=== PATIENT | male | born 1950 | race Caucasian/White ===

== ENCOUNTER 2024-07-06 16:19 | Emergency (ER) | payer OTHER ==
[2024-07-06 17:45] LABS: Absolute Eosinophils 0.1 K/uL (0-0.5); Absolute Lymphocytes (CBC) 0.5 K/uL (0.7-4.9); Absolute Monocytes 0.5 K/uL (0.1-1.3); Absolute Neutrophil 8.7 K/uL (1.8-8.0); Basophils % 0.1 % (0-1.3); Eosinophils % 1.1 % (0-4.4); Hematocrit 46.7 % (39.6-49.0); Hemoglobin 16.7 g/dL (13.6-17.9); MCH 36.6 pg (27.0-35.0); MCHC 35.8 g/dL (32.0-36.0); MCV 102.3 fL (80-100); MPV 10.3 fL (7.6-11.3); Monocytes % 5.3 % (3.3-12.3); Neutrophils % 88.5 % (41.7-73.7); Nucleated Red Blood Cells % 0.1 % (0-0); Platelets 124 thou/uL (152-406); RBC Red Blood Cell Count 4.57 M/uL (4.33-5.43); Red Cell Distribution Width 13.2 % (12.1-15.2)
[2024-07-06 17:51] LABS: PT Prothrombin Time 10.5 SECONDS (9.4-12.5); PTT, Activated Partial Thromb 31.7 SECONDS (24.3-36.9)
[2024-07-06 17:57] LABS: Albumin 3.9 g/dL (3.4-5.0); Albumin/Globulin Ratio 1.1 (1.1-1.8); Anion Gap 8.5 mEq/L (5.0-15.0); Bilirubin Total 0.7 mg/dL (0.2-1.0); Globulin 3.5 g/dL (2.3-3.5); Potassium 3.5 mEq/L (3.5-5.1); Protein, Total 7.4 g/dL (6.4-8.2)
--- NOTE | 2024-07-06 18:53 | RAD REPORT ---
EXAMINATION: CT ABDOMEN AND PELVIS WITH CONTRAST CLINICAL INDICATION: Male, 74 years old.eval for UTI/prostatitis TECHNIQUE: CT abdomen and pelvis was performed, after the administration of IV contrast, as per [facility] protocol. Axial, sagittal and coronal reconstructions were obtained. One or more of the following dose reduction techniques were used: Automated exposure control, adjustment of the mA and/o r kV according to patient size, and/or iterative reconstruction. Unless otherwise specified, incidental findings do not require dedicated imaging follow-up. [id number]. COMPARISON: No prior exam. FINDINGS: LOWER CHEST: Dependent atelectasis. No significant pericardial effusion. Coronary artery calcificatio ns present. UPPER GI: No significant abnormality. LIVER: Benign appearing low density liver lesions. No suspicious mass. GALLBLADDER/BILE DUCTS: No biliary ductal dilatation.? PANCREAS: No mass, ductal dilation, or soo-pancreatic fluid. SPLEEN: Unremarkable. ADRENALS: Adrenal thickening without discrete mass. KIDNEYS AND URETERS: No hydronephrosis.Low density and/or too small to characterize renal lesions whi ch are statistically benign. ABDOMINAL AORTA AND OTHER VESSELS: Normal caliber aorta and IVC. PERITONEUM: No abnormal free fluid. No free air. LYMPH NODES: No pathologic lymphadenopathy. ABDOMINAL WALL: Small fat containing umbilical hernia. Fat-containing inguinal hernias. SMALL BOWEL/COLON: Small bowel has normal course and caliber. No colonic wall thickening or pericolon ic inflammatory changes.Normal appendix. Mild diverticulosis without diverticulitis. URINARY BLADDER: Underdistended but grossly unremarkable. REPRODUCTIVE ORGANS: Mild median lobe hypertrophy of the prostate. No other significant prostatic abn ormality identified. MUSCULOSKELETAL: Multilevel degenerative changes in the spine and hips. No acute fracture. ADDITIONAL FINDINGS: None. IMPRESSION: No acute or significant abnormalities seen in the abdomen or pelvis. Normal appendix.
[2024-07-06 19:53] LABS: Blood Morphology Comment NOT SEEN (NOT SEEN); Platelet Estimate DECR; White Blood Cell Scan OK (OK)
[2024-07-06 20:53] LABS: Specific Gravity > 1.030 (1.005-1.030); Urine Bilirubin NEGATIVE (Negative); Urine Blood Negative (Negative); Urine Clarity Clear (Clear); Urine Color Yellow (Yellow); Urine Glucose NEGATIVE (Negative); Urine Ketones NEGATIVE (Negative); Urine Microscopic Reflex YN NO UMIC; Urine Nitrite NEGATIVE (Negative); Urine Protein NEGATIVE (Negative); Urine Urobilinogen Normal (Normal); Urine pH 5.5 (5.0-7.0)
--- NOTE | 2024-07-06 21:24 | EDPHYS ---
Physician Documentation [facility] Name: Fabricio Kang Age: 74 yrs Sex: Male : 1950 Arrival Date: 07/06/2024 Time: 16:19 Bed 14 Private MD: ED Physician Farhan Martinez HPI: 07/06 16:50 This 74 yrs old Male presents to ER via Ambulatory with complaints of Urinary Problem. rn 16:50 The patient presents with urinary symptoms, dribbling of urine, dysuria, hesitancy to rn initiate urine stream. Onset: The symptoms/episode began/occurred 2 day(s) ago. Modifying factors: The symptoms are alleviated by nothing, the symptoms are aggravated by urinating. Severity of symptoms: At their worst the symptoms were moderate, in the emergency department the symptoms are unchanged. The patient has not experienced similar symptoms in the past. Historical: - Allergies: 16:37 No Known Allergies; db - PMHx: 16:37 Hypertensive disorder; db - PSHx: 16:37 BACK SURGERY; db - Immunization history:: Adult Immunizations unknown. - Infectious Disease History:: Denies. - Social history:: Smoking status: Patient denies any tobacco usage or history of. - Family history:: not pertinent. - Hospitalizations: : No recent hospitalization is reported. ROS: 16:50 Constitutional: Negative for fever, chills, and weight loss, Cardiovascular: Negative rn for chest pain, palpitations, and edema, Respiratory: Negative for shortness of breath, cough, wheezing, and pleuritic chest pain, Abdomen/GI: Reports left flank pain and lower back pain with nausea and vomiting Back: Negative for injury and pain, : Positive for dysuria and increased urinary frequency MS/Extremity: Negative for injury and deformity, Skin: Negative for injury, rash, and discoloration, Neuro: Reports generalized weakness Exam: 16:50 Constitutional: This is a well developed, well nourished patient who is awake, alert, rn and in no acute distress. Cardiovascular: Regular rate and rhythm. No pulse deficits. Respiratory: No increased work of breathing, no retractions or nasal flaring. Abdomen/GI: Soft, no focal tenderness. No rebound or guarding Back: No costovertebral tenderness. MS/ Extremity: Pulses equal, no cyanosis. Neuro: Awake and alert, GCS 15 17:34 ECG was reviewed by the Attending Physician. rn Vital Signs: 16:34 BP 121 / 72; Pulse 65; Resp 18; Temp 97.7(O); Pulse Ox 93% ; Weight 105.23 kg; Height 6 db ft. 0 in. ; 17:51 BP 135 / 70; kb4 17:51 Pulse 64; Resp 22; Temp 98.1; Pulse Ox 95% ; Weight 105.23 kg; Height 6 ft. 0 in. ; kb4 17:54 kb4 18:03 BP 125 / 63; Pulse 66; Resp 18; Pulse Ox 100% ; kj2 18:49 BP 128 / 68; Pulse 60; Resp 20; Pulse Ox 100% ; kj2 20:45 BP 124 / 66; Pulse 65; Resp 18; Temp 98(O); Pulse Ox 97% on R/A; Pain 0/10; rg5 17:51 Body Mass Index 31.46 (105.23 kg, 182.88 cm) kb4 20:45 Pain Scale: Adult rg5 17:54 accucheck - 112 kb4 MDM: 16:36 Medical Screening Exam initiated rn 19:17 Transition of care: Care assumed from Trevin Abebe MD. ms3 21:24 Differential diagnosis: UTI, prostatitis. Data reviewed: vital signs, nurses notes, lab ms3 test result(s), radiologic studies, CT scan, and as a result, I will discharge patient. I considered the following discharge prescriptions or medication management in the emergency department Medications were administered in the Emergency Department. See MAR. Counseling: I had a detailed discussion with the patient and/or guardian regarding the historical points, exam findings, and any diagnostic results supporting the discharge/admit diagnosis, lab results, radiology results, the need for outpatient follow up, to return to the emergency department if symptoms worsen or persist or if there are any questions or concerns that arise at home. Special discussion: I discussed with the patient/guardian in detail that at this point there is no indication for admission to the hospital. It is understood, however, that if the symptoms persist or worsen the patient needs to return immediately for re-evaluation. ED course: Discussion with Dr. Abebe at signout patient with likely prostatitis. Levaquin 500 mg p.o. daily prescribed for 10 days. White blood count normal. UA does not signify UTI. CT abdomen pelvis is without acute abnormalities. Patient to follow-up with his primary care physician. Return precautions discussed include fevers, chills, worsening condition, or any other concerns. On reevaluation patient is alert and orient x 4, no apparent distress, nontoxic-appearing, ambulatory emergency department, speaking full sentences. 07/06 16:46 Order name: Blood Culture Adult (2) rn 07/06 16:46 Order name: CBC with Diff; Complete Time: 20:02 07/06 16:46 Order name: CMP; Complete Time: 18:49 rn 07/06 16:46 Order name: Lactate w/ 2H reflex if indic.; Complete Time: 18:49 07/06 16:46 Order name: Protime (+inr); Complete Time: 17:54 07/06 16:46 Order name: Ptt, Activated; Complete Time: 17:54 07/06 16:46 Order name: Urinalysis w/ reflexes; Complete Time: 21:03 07/06 19:53 Order name: CBC Smear Scan; Complete Time: 20:02 EDIL 07/06 16:46 Order name: CT Abd/Pelvis - IV Contrast Only; Complete Time: 19:01 07/06 16:46 Order name: EKG; Complete Time: 16:47 rn 07/06 16:46 Order name: Accucheck; Complete Time: 17:51 rn 07/06 16:46 Order name: Cardiac monitoring; Complete Time: 17:44 07/06 16:46 Order name: EKG - Nurse/Tech; Complete Time: 17:44 07/06 16:46 Order name: IV Saline Lock - Large Bore; Complete Time: 17:44 rn 07/06 16:46 Order name: Labs collected and sent; Complete Time: 17:44 rn 07/06 16:46 Order name: O2 Per Protocol; Complete Time: 17:44 rn 07/06 16:46 Order name: O2 Sat Monitoring; Complete Time: 17:44 rn 07/06 16:46 Order name: Vital Signs; Complete Time: 17:44 rn EC:34 Rate is 64 beats/min. Rhythm is regular. NC interval is prolonged. QRS interval is rn normal. QT interval is normal. No Q waves. T waves are Normal. No ST changes noted. Clinical impression: NSR w/ Non-specific ST/T Changes and 1st degree heart block. Interpreted by me. Reviewed by me. Administered Medications: 21:35 Drug: LevOfloxacin PO 500 mg PO once Route: PO; rg5 21:38 Follow up: Response: No adverse reaction rg5 Disposition Summary: 07/06/24 21:23 Discharge Ordered Notes: Location: Home ms3 Condition: Stable ms3 Diagnosis - Urinary frequency ms3 Followup: ms3 - With: Masood Marcial, DO - When: 2 - 3 days - Reason: Recheck today's complaints Discharge Instructions: - Discharge Summary Sheet ms3 - Prostatitis, [id number] ms3 Forms: - Medication Reconciliation Form ms3 - Antibiotic Education ms3 - Prescription Opioid Use ms3 - Patient Portal Instructions ms3 - Leadership Thank You Letter ms3 Prescriptions: - levofloxacin 500 mg Oral tablet - take 1 tablet ORAL route once daily for 10 days; 10 tablet; Refills: 0, Product ms3 Selection Permitted Signatures: Dispatcher [employer] EDMS Trevin Abebe MD MD rn Sims, Marcus, DO DO ms3 Diana Alanis, RN RN Zaheer Cordova, MARK RN rg5 Corrections: (The following items were deleted from the chart) 16:47 16:47 Abdomen Pelvis W Con+CT.RAD.BRZ ordered. EDMS EDMS
--- NOTE | 2024-07-06 21:24 | ER ---
Nurse's Notes [facility] Name: Fabricio Kang Age: 74 yrs Sex: Male : 1950 Arrival Date: 07/06/2024 Time: 16:19 Bed 14 Private MD: Diagnosis: Urinary frequency Presentation: 07/06 16:34 Chief complaint: Patient states: FREQUENT URINATION WITH BURNING X 2 DAYS TODAY STARTED db VOMITING AND FEELING WORSE. Coronavirus screen: Client denies travel out of the [place] in the last 14 days. At this time, the client does not indicate any symptoms associated with coronavirus-19. Ebola Screen: Patient negative for fever greater than or equal to 101.5 degrees Fahrenheit, and additional compatible Ebola Virus Disease symptoms Patient denies exposure to infectious person. Patient denies travel to an Ebola-affected area in the 21 days before illness onset. No symptoms or risks identified at this time. Initial Sepsis Screen: Does the patient meet any 2 criteria? No. Patient's initial sepsis screen is negative. Does the patient have a suspected source of infection? No. Patient's initial sepsis screen is negative. Risk Assessment: Do you want to hurt yourself or someone else? Patient reports no desire to harm self or others. Onset of symptoms was July 04, 2024. 16:34 Method Of Arrival: Ambulatory db 16:34 Acuity: ДМИТРИЙ 3 db Triage Assessment: 16:34 General: Appears in no apparent distress. uncomfortable, Behavior is calm, cooperative. db Pain: Complains of pain in pelvis. Neuro: Level of Consciousness is awake, alert, obeys commands, Oriented to person, place. Respiratory: Airway is patent Respiratory effort is even, unlabored, Respiratory pattern is regular, symmetrical. : Reports burning with urination. Historical: - Allergies: 16:37 No Known Allergies; db - PMHx: 16:37 Hypertensive disorder; db - PSHx: 16:37 BACK SURGERY; db - Immunization history:: Adult Immunizations unknown. - Infectious Disease History:: Denies. - Social history:: Smoking status: Patient denies any tobacco usage or history of. - Family history:: not pertinent. - Hospitalizations: : No recent hospitalization is reported. Screenin:00 [facility] ED Fall Risk Assessment (Adult) History of falling in the last 3 months, kj2 including since admission No falls in past 3 months (0 pts) Confusion or Disorientation No (0 pts) Intoxicated or Sedated No (0 pts) Impaired Gait No (0 pts) Mobility Assist Device Used No (0 pt) Altered Elimination No (0 pt) Score/Fall Risk Level 0 - 2 = Low Risk Maintained a safe environment, Hourly rounding (assess needs \T\ fall precautionary measures) done. Abuse screen: Denies threats or abuse. Denies injuries from another. Nutritional screening: No deficits noted. Tuberculosis screening: No symptoms or risk factors identified. Assessment: 17:00 General: Appears in no apparent distress. Behavior is calm, cooperative. Pain: kj2 Complains of pain in pelvis Pain currently is 5 out of 10 on a pain scale. Neuro: Level of Consciousness is awake, alert, obeys commands, Oriented to person, place, time, situation. Cardiovascular: Patient's skin is warm and dry. Respiratory: Airway is patent Respiratory effort is even, unlabored. GI: No signs and/or symptoms were reported involving the gastrointestinal system. : Reports urinary frequency, since 3 days. 18:02 Reassessment: Patient appears in no apparent distress at this time. Patient and/or kj2 family updated on plan of care and expected duration. Pain level reassessed. Patient is alert, oriented x 3, equal unlabored respirations, skin warm/dry/pink. 18:49 Reassessment: Patient appears in no apparent distress at this time. Patient and/or kj2 family updated on plan of care and expected duration. Pain level reassessed. Patient is alert, oriented x 3, equal unlabored respirations, skin warm/dry/pink. 19:10 Reassessment: No changes from previously documented assessment. Patient and/or family rg5 updated on plan of care and expected duration. Pain level reassessed. Patient is alert, oriented x 3, equal unlabored respirations, skin warm/dry/pink. 20:30 Reassessment: No changes from previously documented assessment. Patient is alert, rg5 oriented x 3, equal unlabored respirations, skin warm/dry/pink. 21:30 Reassessment: Patient and/or family updated on plan of care and expected duration. Pain rg5 level reassessed. Patient is alert, oriented x 3, equal unlabored respirations, skin warm/dry/pink. Vital Signs: 16:34 BP 121 / 72; Pulse 65; Resp 18; Temp 97.7(O); Pulse Ox 93% ; Weight 105.23 kg; Height 6 db ft. 0 in. ; 17:51 BP 135 / 70; kb4 17:51 Pulse 64; Resp 22; Temp 98.1; Pulse Ox 95% ; Weight 105.23 kg; Height 6 ft. 0 in. ; kb4 17:54 kb4 18:03 BP 125 / 63; Pulse 66; Resp 18; Pulse Ox 100% ; kj2 18:49 BP 128 / 68; Pulse 60; Resp 20; Pulse Ox 100% ; kj2 20:45 BP 124 / 66; Pulse 65; Resp 18; Temp 98(O); Pulse Ox 97% on R/A; Pain 0/10; rg5 17:51 Body Mass Index 31.46 (105.23 kg, 182.88 cm) kb4 20:45 Pain Scale: Adult rg5 17:54 accucheck - 112 kb4 ED Course: 16:24 Patient arrived in ED. im 16:34 Arm band placed on. db 16:36 Trevin Abebe MD is Attending Physician. rn 16:37 Triage completed. db 17:00 Patient has correct armband on for positive identification. Bed in low position. Call kj2 light in reach. Provided Education on: call light. 17:28 First set of blood cultures drawn Second set of blood cultures drawn by me. kb4 17:43 EKG done, by ED staff, reviewed by Trevin Abebe MD. Inserted saline lock: 20 gauge in kb4 right antecubital area, using aseptic technique. Blood collected. Flushed with 10 mL NS. 17:44 Initial lab(s) drawn, by nj, sent to lab. kb4 18:00 Latoya Breaux, RN is Primary Nurse. kj2 18:02 No provider procedures requiring assistance completed. kj2 18:31 CT Abd/Pelvis - IV Contrast Only In Process Unspecified. EDMS 19:17 Attending Physician role handed off by Trevin Abebe MD ms3 19:17 Farhan Martinez DO is Attending Physician. ms3 21:23 Masood Marcial DO is Referral Physician. ms3 21:46 IV discontinued, bleeding controlled, No redness/swelling at site. Pressure dressing rg5 applied. Administered Medications: 21:35 Drug: LevOfloxacin PO 500 mg PO once Route: PO; rg5 21:38 Follow up: Response: No adverse reaction rg5 Medication: 18:02 VIS not applicable for this client. kj2 Outcome: 21:23 Discharge ordered by . ms3 21:46 Discharged to home ambulatory, rg5 21:46 Condition: stable 21:46 Discharge instructions given to patient, Instructed on discharge instructions, follow up and referral plans. Demonstrated understanding of instructions, follow-up care, medications, 21:47 Patient left the ED. rg5 Signatures: Dispatcher [employer] EDMS Trevin Abebe MD MD rn Sims, Marcus, DO DO ms3 Diana Alanis, RN RN Kady Rodriguez Rommel, RN RN rg5 Latoya Breaux RN RN kj2 Michelle Mccartney kb4 Corrections: (The following items were deleted from the chart) 16:38 16:34 BP 121 / 72; Pulse 65bpm; Resp 18bpm; 105.23 kg; Height 6 ft.; BMI: 31.4; db db
[2024-07-06] MEDS ORDERED: levoFLOXacin 250 MG TAB ONE (21:31)
[2024-07-07 02:01] VITALS: BP 124/66; TEMP 98; O2SAT 97
--- NOTE | 2024-07-09 12:39 | EKG ---
Test Date: 2024-07-06 Test Time: 17:13:54 Sheriff Deputy: TRISH MEASUREMENT RESULTS: Intervals: Rate: 64 RI: 280 QRSD: 98 QT: 440 QTc: 453 [place]: P: 44 RI: 280 QRS: -33 T: 50 INTERPRETIVE STATEMENTS: Sinus rhythm with 1st degree AV block Left axis deviation Abnormal ECG Compared to ECG 10/26/2003 16:21:00 Left-axis deviation now present Electronically Signed On 07-09-24 12:33:22 [employer] SERVICE ADVISOR by Kalpesh Ortega
== END 2024-07-06 21:47 | disposition home or self-care (01) ==
LOC: ER 16:19
DX: R35.0 Frequency of micturition (principal); R30.0 Dysuria
CPT/HCPCS: 87040 ×2; 85025; 36415; 85610; 82947; 83605; 85730; 81003; 80053; 74177; 99284; Q9967; 93005